=== PATIENT | female | born 1960 | race African-American/Black ===

== ENCOUNTER 2016-03-19 07:07 | Emergency (ER) | payer MEDICAID ==
[~2016-03-19] VITALS: Ht 160 cm; Wt 77.3 kg
[~2016-03-19 07:07] MED LIST: ABILIFY 10MG TA10 MG PO; ATARAX 25MG25 MG/TAB PO; CARBATROL200 MG PO; CLONAZEPAM PO; COLACE 100100 MG/CAP PO; DILAUDID 4MG TAB4 MG PO; FLEXERIL 1010 MG/TAB PO; HALDOL 5MG T5 MG/TAB PO; HALDOL5 MG PO; HCTZ; HCTZ 25MG TAB25 MG PO; KLONOPIN 1MG1 MG PO; LATUDA20 MG PO; LORTAB 5/500 501 TAB PO; LORTAB 7.5/5001 TA1 PO; LORTAB 7.5/5001 TAB PO; LOTENSIN20 MG PO; MOOD STABALIZER; MOTRIN800 MG PO; NORCO 325 MG-101 TAB PO; NORCO 325 MG-51 TAB PO; NORCO 325 MG-7.1 TAB PO; NORVASC 5MG5 MG/TAB PO; NORVASC2.5 MG; PERCOCET 325 MG1 TA2 PO; PERCOCET 325 MG1 TAB PO; PHENERGAN 25 TA25 MG PO; PROZAC 20MG20 MG PO; XANAX 1MG1 MG PO; ZOLIPDEM; [UNRECOGNIZED DRUG - OTHER]
[2016-03-19 07:12] VITALS: TEMP 99.8
[2016-03-19] MEDS ORDERED: NORVASC 10MG10 MG PO ×2 (07:23→08:13)
[2016-03-19] MEDS ORDERED: LOTENSIN5 MG PO ×2 (07:25→08:13)
[2016-03-19 07:40] LABS: INFLUENZA B NEGATIVE
[2016-03-19 08:35] VITALS: BP 128/86; PULSE 95
== END 2016-03-19 08:35 | disposition home or self-care (01) ==
LOC: COL.ER 07:07
PROVIDERS: Emergency Medicine
DX: B34.9 Viral infection, unspecified (principal); I10 Essential (primary) hypertension; R11.2 Nausea with vomiting, unspecified; R51 Headache; M79.1 Myalgia; F17.210 Nicotine dependence, cigarettes, uncomplicated

== ENCOUNTER 2016-03-22 11:31 | Observation (INO) | payer MEDICAID ==
[~2016-03-22] VITALS: Ht 160 cm; Wt 83.1 kg
[~2016-03-22 11:31] MED LIST changes: +LOTENSIN5 MG PO; +NORVASC 10MG10 MG PO
[2016-03-22 12:28] LABS: BASO % 0.5 % (0.0-2.0); EOS % 0.1 % (0-4.0); GRAN # 4.1 (1.4-6.5); GRAN % 48.7 % (42.2-75.2); HEMATOCRIT 48.6 % (37.0-47.0); HEMOGLOBIN 15.9 g/dl (12.5-16.0); LYMPH # 3.1 (1.2-3.4); MEAN CELL VOLUME 84 fl (80.0-100.0); MEAN CORPUSCULAR HEMOGLOBIN 27 pg (27.0-31.0); MEAN CORPUSCULAR HGB CONC 33 g/dl (33.0-37.0); MEAN PLATELET VOLUME 11.5 fl (7.4-10.4); MONO # 1.1 (0.1-0.6); MONO % 13.3 % (1.7-9.3); PLATELET COUNT 216 K/mm3 (130-400); RED BLOOD COUNT 5.81 M/mm3 (4.10-5.30); REDCELL DISTRIBUTION WIDTH-CV 12.9 % (11.5-14.5); WHITE BLOOD COUNT 8.4 K/mm3 (4.8-10.8)
[2016-03-22 12:45] LABS: ADJUSTED CALCIUM 8.7 mg/dL (8.4-10.2); ALBUMIN 4.5 gm/dL (3.5-5.0); BILIRUBIN,TOTAL 1.2 mg/dL (0.0-1.0); CALCIUM 9.1 mg/dL (8.4-10.2); CREATININE, serum 2.44 mg/dL (0.52-1.25); POTASSIUM 3.9 mmol/L (3.4-5.0); TOTAL PROTEIN 8.5 gm/dL (6.4-8.2)
[2016-03-22 12:48] LABS: PH 5 (5-8); SQUAMOUS EPITHELIAL 0-2 /hpf; URINE APPEARANCE Cloudy; URINE BACTERIA Rare /hpf; URINE BILIRUBIN Negative (NEGATIVE); URINE BLOOD Negative (NEGATIVE); URINE COLOR Amber; URINE GLUCOSE Negative (NEGATIVE); URINE KETONE Negative (NEGATIVE); URINE RBC 0-2 /hpf; URINE UROBILINOGEN >=4.0 mg/dL (NEGATIVE)
[2016-03-22 15:05] LABS: MAGNESIUM 2.1 mg/dL (1.6-2.3)
[2016-03-22 15:44] VITALS: BP 100/66
[2016-03-22 16:26] VITALS: BP 115/66; PULSE 76; TEMP 98
[2016-03-22 16:32] VITALS: BP 115/66; PULSE 78; TEMP 98
[2016-03-22 21:51] VITALS: BP 113/58; PULSE 62; TEMP 98.3
[2016-03-22 23:30] VITALS: BP 124/84; PULSE 66; TEMP 98.4
[2016-03-23 04:49] VITALS: BP 119/75; PULSE 71; TEMP 97.9
[2016-03-23 05:30] LABS: INFLUENZA B NEGATIVE
[2016-03-23 08:00] VITALS: BP 118/79; PULSE 66; TEMP 99
[2016-03-23 09:35] LABS: BASO % 0.5 % (0.0-2.0); EOS % 0.4 % (0-4.0); GRAN % 37.2 % (42.2-75.2); HEMATOCRIT 42.8 % (37.0-47.0); LYMPH # 2.8 (1.2-3.4); LYMPH % 50.9 % (20.0-51.0); MEAN CELL VOLUME 85 fl (80.0-100.0); MEAN CORPUSCULAR HEMOGLOBIN 28 pg (27.0-31.0); MEAN CORPUSCULAR HGB CONC 33 g/dl (33.0-37.0); MEAN PLATELET VOLUME 11.9 fl (7.4-10.4); MONO # 0.6 (0.1-0.6); PLATELET COUNT 168 K/mm3 (130-400); RED BLOOD COUNT 5.05 M/mm3 (4.10-5.30); REDCELL DISTRIBUTION WIDTH-CV 13.1 % (11.5-14.5); WHITE BLOOD COUNT 5.5 K/mm3 (4.8-10.8)
[2016-03-23 09:40] LABS: HEMOGLOBIN 13.9 g/dl (12.5-16.0)
[2016-03-23 09:44] LABS: CALCIUM 8.5 mg/dL (8.4-10.2); CREATININE, serum 1.44 mg/dL (0.52-1.25); POTASSIUM 4.1 mmol/L (3.4-5.0)
[2016-03-23 12:19] VITALS: BP 109/75; PULSE 70; TEMP 98
[2016-03-23 16:31] VITALS: BP 123/77; PULSE 64; TEMP 97.8
[2016-03-23] MEDS ORDERED: DOXYCYCLINE 10100 MG PO (16:33)
[2016-03-23] MEDS ORDERED: ZOFRAN ODT4 MG PO (16:34)
== END 2016-03-23 18:14 | disposition home or self-care (01) ==
LOC: COL.ER 11:31 → MEDICAL 14:16
PROVIDERS: Nurse Practitioner; Nurse Practitioner Family
DX: R11.2 Nausea with vomiting, unspecified (principal); E86.0 Dehydration; N17.9 Acute kidney failure, unspecified; J32.9 Chronic sinusitis, unspecified; R82.90 Unspecified abnormal findings in urine; Z80.1 Family history of malignant neoplasm of trachea, bronchus and lung; Z80.0 Family history of malignant neoplasm of digestive organs; Z87.891 Personal history of nicotine dependence
CPT/HCPCS: 99223-AI; G0378; J2405; J7030; J7040

== ENCOUNTER 2017-03-20 10:29 | Emergency (ER) | payer MEDICAID ==
[~2017-03-20] VITALS: Ht 160 cm; Wt 79.1 kg
[~2017-03-20 10:29] MED LIST changes: +DOXYCYCLINE 10100 MG PO; +ZOFRAN ODT4 MG PO
[2017-03-20 10:32] VITALS: TEMP 98
[2017-03-20] MEDS ORDERED: ATARAX50 MG PO (11:08)
[2017-03-20 11:14] LABS: COLLECTION METHOD CLEAN CATCH
[2017-03-20 11:27] LABS: TRICYCLIC ANTIDEPRESS URINE NEGATIVE
[2017-03-20 11:42] LABS: MUCOUS Present /lpf; PH 6 (5-8); SQUAMOUS EPITHELIAL 0-2 /hpf; URINE APPEARANCE Clear; URINE BACTERIA Moderate /hpf; URINE BILIRUBIN Negative (NEGATIVE); URINE BLOOD Negative (NEGATIVE); URINE COLOR Straw; URINE GLUCOSE Negative (NEGATIVE); URINE KETONE Negative (NEGATIVE); URINE LEUKOCYTE ESTERASE 1+ (NEGATIVE); URINE NITRATE Positive (NEGATIVE); URINE PROTEIN(semi-quant) Negative (NEGATIVE); URINE RBC 0-2 /hpf; URINE UROBILINOGEN Negative (NEGATIVE)
[2017-03-20 11:56] LABS: BASO # 0.1 (0.0-0.2); BASO % 0.7 % (0.0-2.0); EOS # 0.1 (0.0-0.7); GRAN # 5.3 (1.4-6.5); GRAN % 61.9 % (42.2-75.2); HEMATOCRIT 46.9 % (37.0-47.0); HEMOGLOBIN 14.6 g/dl (12.5-16.0); LYMPH # 2.6 (1.2-3.4); LYMPH % 30.3 % (20.0-51.0); MEAN CELL VOLUME 88 fl (80.0-100.0); MEAN CORPUSCULAR HEMOGLOBIN 27 pg (27.0-31.0); MEAN CORPUSCULAR HGB CONC 31 g/dl (33.0-37.0); MEAN PLATELET VOLUME 11.1 fl (7.4-10.4); MONO # 0.5 (0.1-0.6); MONO % 5.9 % (1.7-9.3); PLATELET COUNT 266 K/mm3 (130-400); RED BLOOD COUNT 5.33 M/mm3 (4.10-5.30); REDCELL DISTRIBUTION WIDTH-CV 12.9 % (11.5-14.5)
[2017-03-20 12:03] LABS: ALANINE AMINOTRANSFERASE 30 U/L (9-52); ALBUMIN 4.1 gm/dL (3.5-5.0); ALKALINE PHOSPHATASE 113 U/L (50-136); ANION GAP 6 mmol/L (7-16); AST,SGOT 12 U/L (15-37); BILIRUBIN,TOTAL 0.7 mg/dL (0.0-1.0); BLOOD UREA NITROGEN 16 mg/dL (7-17); CALCIUM 9.3 mg/dL (8.4-10.2); CARBON DIOXIDE 28 mmol/L (22-30); CHLORIDE 106 mmol/L (98-107); CREATININE, serum 1.27 mg/dL (0.52-1.25); GLUCOSE 98 mg/dL (74-106); POTASSIUM 3.9 mmol/L (3.4-5.0); SODIUM 140 mmol/L (137-145); TOTAL PROTEIN 7.5 gm/dL (6.4-8.2)
[2017-03-20 12:04] LABS: ACETAMINOPHEN < 10 ug/mL (10-30); ALCOHOL(ethanol),MEDICAL < 10 mg/dL
[2017-03-20] MEDS ORDERED: NORVASC 5MG5 MG/TAB PO (15:23)
[2017-03-20] MEDS ORDERED: CIPRO 500MG TA500 MG PO (15:23)
[2017-03-20 15:35] VITALS: BP 170/96; PULSE 86
== END 2017-03-20 15:35 | disposition home or self-care (01) ==
LOC: COL.ER 10:29
PROVIDERS: Family Medicine
DX: F30.2 Manic episode, severe with psychotic symptoms (principal); N39.0 Urinary tract infection, site not specified; I10 Essential (primary) hypertension

== ENCOUNTER → 2018-03-07 | Outpatient (CLI) | payer OTHER ==
--- NOTE | 2018-02-25 13:29 | NUR ---
no call no show
--- NOTE | 2018-03-04 08:23 | NUR ---
LEFT MSG FOR PT TO CALL, LEFT PHONE NUMBER. ALSO ASKED FOR MEDS, ALLERGIES AND PMH. INFORMED PT ANESTHESIA WOULD BE CALLING SOMETIME THIS WEEK.
[~2018-03-07] VITALS: Ht 160 cm; Wt 73.6 kg
[~2018-03-07] MED LIST changes: +ATARAX50 MG PO; +CIPRO 500MG TA500 MG PO
[2018-03-07 09:08] VITALS: BP 135/83; PULSE 67
--- NOTE | 2018-03-07 09:50 | NUR ---
Pt refused an IV and sedation meds through the IV. Pt opted instead to have Valium 10 mg po, this was given. Pt did not wish to have a mask. Called [facility] and they gave an order for Valium 10 mg.
--- NOTE | 2018-03-07 10:41 | NUR ---
PT DID NOT COME BACK TO NURSING. PT WAS TAKEN TO RAD LOBBY AND LET GO.
== END ==
LOC: COL.RAD 02-25 12:00
DX: M51.36 Other intervertebral disc degeneration, lumbar region (principal); M47.812 Spondylosis without myelopathy or radiculopathy, cervical region; M25.78 Osteophyte, vertebrae; M50.222 Other cervical disc displacement at C5-C6 level; M48.02 Spinal stenosis, cervical region; M47.814 Spondylosis without myelopathy or radiculopathy, thoracic region; M41.86 Other forms of scoliosis, lumbar region; M48.07 Spinal stenosis, lumbosacral region; M85.68 Other cyst of bone, other site

== ENCOUNTER → 2020-11-17 | Outpatient (CLI) | payer OTHER ==
[2020-11-17 12:47] LABS: ALBUMIN 3.8 gm/dL (3.4-4.8); BILIRUBIN,TOTAL 0.6 mg/dL (0.2-1.2); CALCIUM 9.8 mg/dL (8.4-10.2); CHOLESTEROL RISK RATIO 1.8; CREATININE, serum 1.72 mg/dL (0.57-1.11); POTASSIUM 4.4 mmol/L (3.5-4.5); TOTAL PROTEIN 7.5 gm/dL (6.2-8.1)
[2020-11-17 12:59] LABS: BASO # 0.1 (0.0-0.2); BASO % 0.8 % (0.0-2.0); EOS # 0.1 (0.0-0.7); EOS % 1.3 % (0-4.0); GRAN # 5.3 (1.4-6.5); GRAN % 61.9 % (42.2-75.2); HEMATOCRIT 47.8 % (37.0-47.0); HEMOGLOBIN 14.9 g/dl (12.5-16.0); LYMPH # 2.6 (1.2-3.4); LYMPH % 29.7 % (20.0-51.0); MEAN CELL VOLUME 91 fl (80.0-100.0); MEAN CORPUSCULAR HEMOGLOBIN 28 pg (27.0-31.0); MEAN CORPUSCULAR HGB CONC 31 g/dl (33.0-37.0); MEAN PLATELET VOLUME 12.4 fl (7.4-10.4); MONO # 0.5 (0.1-0.6); MONO % 6.2 % (1.7-9.3); PLATELET COUNT 211 K/mm3 (130-400); RED BLOOD COUNT 5.27 M/mm3 (4.10-5.30); REDCELL DISTRIBUTION WIDTH-CV 14.4 % (11.5-14.5)
[2020-11-17 13:07] LABS: THYROID STIMULATING HORMONE 0.93 uIU/mL (0.350-4.940)
== END ==
LOC: COL.RAD 08:30 → COL.LAB 08:49
PROVIDERS: Physician Assistant
DX: Z13.0 Encounter for screening for diseases of the blood and blood-forming organs and certain disorders involving the immune mechanism (principal); Z13.228 Encounter for screening for other metabolic disorders; Z13.29 Encounter for screening for other suspected endocrine disorder; Z13.6 Encounter for screening for cardiovascular disorders; M25.551 Pain in right hip; M25.552 Pain in left hip; M51.36 Other intervertebral disc degeneration, lumbar region; M47.816 Spondylosis without myelopathy or radiculopathy, lumbar region